=== PATIENT | female | born 2000 | race Caucasian/White ===

== ENCOUNTER 2018-05-03 18:58 | Emergency (ER) | payer SELFPAY ==
[~2018-05-03] VITALS: Ht 162.6 cm; Wt 103.0 kg
[2018-05-03 19:49] VITALS: BP 119/78
== END 2018-05-03 21:25 | disposition left against medical advice (07) ==
LOC: ER 18:58
DX: R21 Rash and other nonspecific skin eruption (principal); Z53.21 Procedure and treatment not carried out due to patient leaving prior to being seen by health care provider

== ENCOUNTER 2018-05-13 23:25 | Observation (INO) | payer MEDICAID ==
[~2018-05-13] VITALS: Ht 154.9 cm; Wt 105.2 kg
[2018-05-14] MEDS ORDERED: PNV1TABL50 MT (01:05)
== END 2018-05-14 01:17 | disposition home or self-care (01) ==
LOC: L&D 23:25
PROVIDERS: ADMIT Obstetrics & Gynecology; ATTEND Obstetrics & Gynecology
DX: O36.63X0 Maternal care for excessive fetal growth, third trimester, not applicable or unspecified (principal); O62.9 Abnormality of forces of labor, unspecified
CPT/HCPCS: 76805; 76818; G0378

== ENCOUNTER 2018-05-17 13:13 | Observation (INO) | payer MEDICAID ==
[~2018-05-17] VITALS: Ht 160 cm; Wt 106.6 kg
[~2018-05-17 13:13] MED LIST: PNV1TABL50 MT
== END 2018-05-17 16:20 | disposition home or self-care (01) ==
LOC: L&D 13:13
PROVIDERS: ADMIT Obstetrics & Gynecology; ATTEND Obstetrics & Gynecology
DX: Z34.93 Encounter for supervision of normal pregnancy, unspecified, third trimester (principal); Z3A.39 39 weeks gestation of pregnancy
CPT/HCPCS: 59025; 76815; 76818; G0378

== ENCOUNTER 2018-05-20 21:56 | Observation (INO) | payer MEDICAID ==
[~2018-05-20] VITALS: Ht 160 cm; Wt 106.6 kg
[2018-05-20] MEDS ORDERED: LACTATED RINGERS 1,000 ML IV SCH (23:10)
[2018-05-20] MEDS ORDERED: DEXT 5%/LR + PITOCIN 20UNITS/L 1,000 ML IV SCH (23:10)
[2018-05-20] MEDS ORDERED: MISOPROSTOL 100MCG TABLET VG SCH (23:15)
[2018-05-20] MEDS ORDERED: CARBOPROST TROMETHAMINE 250 MCG/ML AMPUL IM PRN (23:15)
[2018-05-20] MEDS ORDERED: METHYLERGONOVINE MALEATE 0.2 MG/ML IM PRN (23:15)
[2018-05-20] MEDS ORDERED: BUTORPHANOL TARTRATE 2 MG/ML VIAL IV PRN (23:15)
[2018-05-20] MEDS ORDERED: NALOXONE HCL 0.4 MG/ML 1ML VIAL IM PRN (23:15)
[2018-05-20] MEDS ORDERED: LIDOCAINE HCL 1% 20ML VIAL (Pyxis) INJ INFIL SCH (23:15)
[2018-05-20] MEDS ORDERED: ACETAMINOPHEN 325MG TABLET PO NR (23:15)
[2018-05-21 00:24] LABS: CLARITY URINE CLOUDY (CLEAR); COLOR URINE YELLOW (YELLOW); KETONES URINE NEGATIVE (NEGATIVE); LEUKOCYTE ESTERASE URINE 1+ (NEGATIVE); NITRITE URINE NEGATIVE (NEGATIVE); OCCULT BLOOD URINE NEGATIVE (NEGATIVE); PROTEIN URINE TRACE (NEGATIVE); SPECIFIC GRAVITY URINE 1.015 (1.005-1.030); UROBILINOGEN URINE 0.2 E.U./dL (0.2-1.0)
[2018-05-21] MEDS ORDERED: MISOPROSTOL 100MCG TABLET VG SCH (02:00)
[2018-05-21 03:21] LABS: BASOPHILS % 0.4 % (0.0-2.0); EOSINOPHILS % 9.5 % (0.0-5.0); HEMOGLOBIN. 10.6 g/dL (12.0-16.0); LYMPHOCYTES % 17.8 % (20.0-50.0); MEAN CORPUSCULAR HEMOGLOBIN 23.9 pg (28.0-32.0); MEAN CORPUSCULAR VOLUME 72.3 fL (81.0-99.0); MEAN PLATELET VOLUME 9.8 fl (7.4-10.4); MONOCYTES % 5.8 % (2.0-8.0); NEUTROPHILS % 66.5 % (40.0-76.0); PLATELET 161 x1000/uL (130-400); RED BLOOD CELL COUNT 4.42 mill/uL (4.2-5.4); RED CELL DISTRIBUTION WIDTH 16.3 % (11.6-14.6)
[2018-05-21 03:23] LABS: *AMPHETAMINES SCREEN URINE NEGATIVE (NEGATIVE)
[2018-05-21 03:24] LABS: *BARBITURATES SCREEN URINE NEGATIVE (NEGATIVE); *BENZODIAZEPINES SCREEN URINE NEGATIVE (NEGATIVE); *COCAINE SCREEN URINE NEGATIVE (NEGATIVE); METHADONE URINE SCREEN NEGATIVE (NEGATIVE); OPIATES URINE SCREEN NEGATIVE (NEGATIVE); PHENCYCLIDINE URINE SCREEN NEGATIVE (NEGATIVE)
[2018-05-21 03:25] LABS: CANNABINOID URINE SCREEN NEGATIVE (NEGATIVE)
[2018-05-21 03:25] LABS: INR 0.9; PARTIAL THROMBOPLASTIN TIME 27.2 sec (23.4-31.0); PROTHROMBIN TIME 9.4 sec (9.1-11.1)
== END 2018-05-21 09:10 | disposition home or self-care (01) ==
LOC: L&D 21:56
PROVIDERS: ADMIT Obstetrics & Gynecology; ATTEND Obstetrics & Gynecology
DX: O48.0 Post-term pregnancy (principal); Z3A.40 40 weeks gestation of pregnancy
CPT/HCPCS: 36415; 76815; 76818; 80305; 81003; 85025; 85610; 85730; 86592; 86703; 86762; 86850; 86900; 86901; 87086; 87340; 99281; G0378; J7120; 96360

== ENCOUNTER 2018-05-30 04:29 | Inpatient (IN) | payer MEDICAID ==
[~2018-05-30] VITALS: Ht 152.4 cm; Wt 106.6 kg
[2018-05-30] MEDS ORDERED: DEXT 5%/LR + PITOCIN 20UNITS/L 1,000 ML IV SCH (04:49)
[2018-05-30] MEDS ORDERED: LIDOCAINE HCL 1% 20ML VIAL (Pyxis) INJ INFIL SCH (05:00)
[2018-05-30] MEDS ORDERED: NALOXONE HCL 0.4 MG/ML 1ML VIAL IM PRN (05:00)
[2018-05-30] MEDS ORDERED: BUTORPHANOL TARTRATE 2 MG/ML VIAL IV PRN (05:00)
[2018-05-30] MEDS ORDERED: CARBOPROST TROMETHAMINE 250 MCG/ML AMPUL IM PRN (05:00)
[2018-05-30] MEDS: LACTATED RINGERS 1,000 ML IV SCH ×3 (06:21→13:17)
[2018-05-30 07:12] LABS: BASOPHILS % 0.5 % (0.0-2.0); EOSINOPHILS % 4.5 % (0.0-5.0); HEMATOCRIT. 35.3 % (36.0-48.0); HEMOGLOBIN. 11.3 g/dL (12.0-16.0); LYMPHOCYTES % 16.8 % (20.0-50.0); MEAN CORPUSCULAR HEMOGLOBIN 23.2 pg (28.0-32.0); MEAN CORPUSCULAR VOLUME 72.5 fL (81.0-99.0); MEAN PLATELET VOLUME 9.8 fl (7.4-10.4); MONOCYTES % 5.7 % (2.0-8.0); NEUTROPHILS % 72.5 % (40.0-76.0); PLATELET 154 x1000/uL (130-400); RED BLOOD CELL COUNT 4.86 mill/uL (4.2-5.4); RED CELL DISTRIBUTION WIDTH 16.6 % (11.6-14.6)
[2018-05-30 08:01] LABS: HEPATITIS B SURFACE ANTIGEN NEGATIVE; RUBELLA IGG 28.8 IU/mL (4.99-10)
[2018-05-30 08:09] LABS: PARTIAL THROMBOPLASTIN TIME 27.8 sec (23.4-31.0); PROTHROMBIN TIME 9.6 sec (9.1-11.1)
[2018-05-30 10:20] LABS: CLARITY URINE CLOUDY (CLEAR); COLOR URINE YELLOW (YELLOW); KETONES URINE NEGATIVE (NEGATIVE); LEUKOCYTE ESTERASE URINE NEGATIVE (NEGATIVE); NITRITE URINE NEGATIVE (NEGATIVE); OCCULT BLOOD URINE 3+ (NEGATIVE); PH URINE 6.5 (4.5-8.0); PROTEIN URINE 2+ (NEGATIVE); SPECIFIC GRAVITY URINE 1.018 (1.005-1.030); UROBILINOGEN URINE 0.2 E.U./dL (0.2-1.0)
[2018-05-30 10:48] LABS: *AMPHETAMINES SCREEN URINE NEGATIVE (NEGATIVE)
[2018-05-30 10:49] LABS: *BARBITURATES SCREEN URINE NEGATIVE (NEGATIVE); *COCAINE SCREEN URINE NEGATIVE (NEGATIVE); CANNABINOID URINE SCREEN NEGATIVE (NEGATIVE); PHENCYCLIDINE URINE SCREEN NEGATIVE (NEGATIVE)
[2018-05-30 10:50] LABS: METHADONE URINE SCREEN NEGATIVE (NEGATIVE); OPIATES URINE SCREEN NEGATIVE (NEGATIVE)
[2018-05-30 10:58] LABS: *BENZODIAZEPINES SCREEN URINE NEGATIVE (NEGATIVE)
[2018-05-30] MEDS ORDERED: BUPIVACAINE HCL/PF 0.25% (2.5MG/ML) 10ML ONE (12:30)
[2018-05-30] MEDS ORDERED: FENTANYL CITRATE/PF 50MCG/ML 2ML VIAL ONE (12:30)
[2018-05-30] MEDS ORDERED: BUPIVACAINE HCL/NS/PF EPIDURAL 100 ML EP ONE (12:31)
[2018-05-30] MEDS ORDERED: BUPIVACAINE HCL/NS/PF EPIDURAL 100 ML EP SCH (13:15)
[2018-05-30] MEDS ORDERED: DIPHENHYDRAMINE 50MG/ML VIAL IV PRN (13:15)
[2018-05-30] MEDS ORDERED: ONDANSETRON HCL 4MG/2ML INJ IV PRN ×2 (13:15→20:15)
[2018-05-30] MEDS ORDERED: METOCLOPRAMIDE HCL 10MG/2ML VIAL IV PRN (13:15)
[2018-05-30] MEDS ORDERED: LIDOCAINE HCL 2%/EPINEPHRINE/PF 10 ML VIAL ONE (19:23)
[2018-05-30] MEDS ORDERED: ONDANSETRON HCL 4MG/2ML INJ ONE (19:23)
[2018-05-30] MEDS ORDERED: MORPHINE SULFATE/PF 1MG/ML 10ML AMP ONE (20:02)
[2018-05-30] MEDS ORDERED: OXYTOCIN 10 UNITS/ML 1ML ONE ×2 (20:02→20:14)
[2018-05-30] MEDS ORDERED: KETAMINE HCL 50 MG/ML 10ML IV ONE (20:15)
[2018-05-30] MEDS ORDERED: LABETALOL 5MG/ML SYR 20 MG/4 ML SYRINGE IV PRN (20:15)
[2018-05-30] MEDS ORDERED: HYDROMORPHONE HCL/PF 2MG/ML CPJ IV PRN (20:15)
[2018-05-30] MEDS ORDERED: MEPERIDINE HCL/PF 25MG/ML CPJ IV PRN (20:15)
[2018-05-30] MEDS ORDERED: IBUPROFEN 400MG TABLET PO PRN (21:00)
[2018-05-30] MEDS ORDERED: BISACODYL 10MG SUPP PR PRN (21:00)
[2018-05-30] MEDS ORDERED: HYDROMORPHONE HCL/PF 2MG/ML CPJ IM PRN (21:00)
[2018-05-30] MEDS ORDERED: RHO(D) IMMUNE GLOBULIN 300 MCG/SYR IM PRN (21:00)
[2018-05-30] MEDS: DEXT 5%/LR + PITOCIN 20UNITS/L 1,000 ML IV SCH (21:34)
[2018-05-30 23:45] VITALS: BP 114/56
[2018-05-31] VITALS (7 sets, daily range): BP systolic 102–125; BP diastolic 54–81
[2018-05-31] MEDS: DEXT 5%/LR + PITOCIN 20UNITS/L 1,000 ML IV SCH (04:45)
[2018-05-31 07:42] LABS: BASOPHILS % 0.4 % (0.0-2.0); EOSINOPHILS % 0.3 % (0.0-5.0); HEMATOCRIT. 22.2 % (36.0-48.0); HEMOGLOBIN. 7.3 g/dL (12.0-16.0); LYMPHOCYTES % 12.2 % (20.0-50.0); MEAN CORPUSCULAR HEMOGLOBIN 23.8 pg (28.0-32.0); MEAN CORPUSCULAR VOLUME 72.6 fL (81.0-99.0); MEAN PLATELET VOLUME 9.6 fl (7.4-10.4); MONOCYTES % 4.7 % (2.0-8.0); NEUTROPHILS % 82.4 % (40.0-76.0); PLATELET 133 x1000/uL (130-400); RED BLOOD CELL COUNT 3.05 mill/uL (4.2-5.4); RED CELL DISTRIBUTION WIDTH 16.6 % (11.6-14.6)
[2018-05-31] MEDS: IBUPROFEN 800MG TABLET PO PRN ×3 (08:39→22:07)
[2018-05-31] MEDS ORDERED: DIPHENHYDRAMINE 50MG/ML VIAL IV NR (16:00)
[2018-06-01 00:01] VITALS: BP 96/63
[2018-06-01] MEDS: IBUPROFEN 800MG TABLET PO PRN ×2 (04:37→21:39)
[2018-06-01 05:00] VITALS: BP 108/71
[2018-06-01 08:12] VITALS: BP 116/72
[2018-06-01] MEDS: ACETAMINOPHEN WITH CODEINE 300/30MG TABLET PO PRN ×2 (09:18→15:54)
[2018-06-01 14:02] VITALS: BP 115/63
[2018-06-01 17:30] VITALS: BP 124/72
[2018-06-01] MEDS: METHYLERGONOVINE MALEATE 0.2MG TABLET PO SCH (18:44)
[2018-06-01 19:06] LABS: HEMOGLOBIN 6.5 g/dL (12.0-16.0)
[2018-06-01 19:07] LABS: HEMATOCRIT 20.7 % (36.0-48.0)
[2018-06-01 22:00] VITALS: BP 140/81
[2018-06-02] MEDS: METHYLERGONOVINE MALEATE 0.2MG TABLET PO SCH ×2 (00:11→06:10)
[2018-06-02 05:40] VITALS: BP 125/76
[2018-06-02 07:45] VITALS: BP 122/64
[2018-06-02] MEDS: IBUPROFEN 800MG TABLET PO PRN (08:16)
== END 2018-06-02 11:35 | disposition home or self-care (01) | DRG 540 ==
LOC: L&D 04:29 → OBSVTOIN 04:29 → 7EST PP/OB 23:31
PROVIDERS: ADMIT Obstetrics & Gynecology; ATTEND Obstetrics & Gynecology
PROC: 10D00Z1 Extraction of Products of Conception, Low, Open Approach (ICD-10-PCS; principal; 2018-05-30 20:45)
DX: O36.63X0 Maternal care for excessive fetal growth, third trimester, not applicable or unspecified (principal); D64.9 Anemia, unspecified; O62.2 Other uterine inertia; O99.02 Anemia complicating childbirth; Z37.0 Single live birth; Z3A.41 41 weeks gestation of pregnancy
CPT/HCPCS: 36415; 76805; 80305; 81003; 85014; 85018; 85025; 85610; 85730; 86592; 86703; 86762; 86850; 86900; 87340; 88307; 99281; J0595; J1200; J2274; J2405; J2590; J3010; J3490; J7120

== ENCOUNTER 2022-12-13 01:11 | Emergency (ER) | payer MEDICAID, OTHER ==
[~2022-12-13] VITALS: Ht 157.5 cm; Wt 92.4 kg
[2022-12-13 02:26] VITALS: BP 149/112
[2022-12-13] MEDS ORDERED: IBUPROFEN 600MG TABLET PO ONE (02:30)
[2022-12-13] MEDS ORDERED: AMOX-494 MT (03:02)
[2022-12-13] MEDS ORDERED: IBUP-2029 MT (03:02)
== END 2022-12-13 03:20 | disposition home or self-care (01) ==
LOC: ER 01:11
DX: R51.9 Headache, unspecified (principal); H66.92 Otitis media, unspecified, left ear
CPT/HCPCS: 99282; 99283